=== PATIENT | male | born 1990 | race Two or more races ===

== ENCOUNTER 2017-04-07 16:15 | Emergency (ER) | payer OTHER ==
[~2017-04-07] VITALS: Ht 170.2 cm; Wt 86.2 kg
--- NOTE | 2017-04-07 16:58 | Emergency Room Report ---
History of Present Illness General Chief Complaint: Male Urogenital Problems Source: Patient Present Illness HPI 26YOM with 1 month intermittent dysuria, burning at end of urination No polyuria No abd pain, vomiting, diarrhea Sexually active with 1 partner 1 month ago had negative testing for STDs but was treated with IM ceftriaxone Allergies: Coded Allergies: No Known Allergies (Unverified , 04/07/17) Patient History Past Medical History: none Past Surgical History: none Pertinent Family History: none Social History: Denies: smoking, alcohol use, drug use Immunizations: UTD Reviewed Nursing Documentation: PMH: Agreed, PSxH: Agreed Nursing Documentation-PMH Past Medical History: No Stated History Review of Systems All Other Systems: negative except mentioned in HPI Physical Exam Vital Signs Date Time Temp Pulse Resp B/P (MAP) Pulse Ox O2 Delivery O2 Flow Rate FiO2 04/07/17 16:18 97.6 55 18 123/77 97 Room Air 97.5 Sp02 EP Interpretation: reviewed, normal General Appearance: normal inspection, well appearing, no apparent distress, alert, GCS 15, non-toxic Head: normocephalic, atraumatic Eyes: bilateral eye PERRL, bilateral eye EOMI ENT: normal ENT inspection, hearing grossly normal, normal pharynx, no angioedema, normal voice, TMs + canals normal, uvula midline, moist mucus membranes Neck: normal inspection, full range of motion, supple, thyroid normal, no meningismus, no bony tend Respiratory: normal inspection, lungs clear, normal breath sounds, no rhonchi, no respiratory distress, no retraction, no accessory muscle use, no wheezing, speaking full sentences Cardiovascular #1: regular rate, rhythm, no edema, no JVD, normal capillary refill Gastrointestinal: normal inspection, normal bowel sounds, non tender, soft, no mass, no peritonitis, non-distended, no guarding, no hernia, no pulsatile mass Genitourinary: no CVA tenderness, other - Uncircumicised penis: easily retractable foreskin. No balanitis. No discharge. No scrotal ttp. Mild ttp to left epididymis. Musculoskeletal: normal inspection, back normal, normal range of motion, no calf tenderness, pelvis stable, Pat's Sign negative Neurologic: normal inspection, alert, oriented x3, responsive, cyber forensic specialist III-XII nml as tested, motor strength/tone normal, cerebellar normal, normal gait, speech normal Psychiatric: normal inspection, judgement/insight normal, mood/affect normal, no suicidal/homicidal ideation, no delusions Skin: normal inspection, normal color, no rash Lymphatic: normal inspection, no adenopathy Medical Decision Making Diagnostic Impression: Primary Impression: Dysuria ER Course VSS, afebrile UA: no hematuria, no WBCs or bacteria Unlikely torsion given normal scrotal exam, symptoms for 1 month Unlikely STD given recent negative testing, tx with ?ceftriaxone Im, one sexual partner No balanitis on exam No fourniers on exam Mild ttp to epididymis...was not completely treated at outside hospital with IM ?cef only Will give Azithro 1 gram here as well Reassured patient Last Vital Signs Date Time Temp Pulse Resp B/P (MAP) Pulse Ox O2 Delivery O2 Flow Rate FiO2 04/07/17 16:18 97.6 55 18 123/77 97 Room Air 97.5 Status: improved Disposition: HOME, SELF-CARE TALISHA MARIA M.D. Apr 07, 2017 16:58
[2017-04-07 17:03] LABS: APPEARANCE,URINE CLEAR; BILIRUBIN, URINE NEGATIVE (NEGATIVE); COLOR,URINE PALE YELLOW; GLUCOSE, URINE (UA) NEGATIVE (NEGATIVE); KETONES,URINE NEGATIVE (NEGATIVE); LEUKOCYTE ESTERASE ,URINE NEGATIVE (NEGATIVE); NITRITE,URINE NEGATIVE (NEGATIVE); PH,URINE 7 (4.5-8.0); PROTEIN,URINE NEGATIVE (NEGATIVE); UROBILINOGEN,URINE NORMAL MG/DL (0.0-1.0)
[2017-04-07] MEDS ORDERED: Azithromycin 250mg tab ORAL ONE (18:00)
[2017-04-07 18:02] VITALS: BP 124/82
== END 2017-04-07 18:02 | disposition home or self-care (01) ==
LOC: EMR 16:25
DX: R30.0 Dysuria (principal)
CPT/HCPCS: 81003; 99282; Q0144